=== PATIENT | female | born 1975 | race African-American/Black ===

== ENCOUNTER 2022-01-10 10:50 | Outpatient (CLI) | payer BC ==
[2022-01-10 11:48] LABS: #Basophils 0.1 thou/uL (0.0-0.2); #Eosinphils 0.7 thou/uL (0.0-0.7); #Lymphocytes 2.8 thou/uL (1.20-3.40); #Monocytes 0.8 thou/uL (0.11-0.59); #Neutrophils 5.8 thou/uL (1.40-6.50); %Basophils 1.2 % (0.0-1.0); %Eosinophils 6.8 % (0.0-10.0); %Lymphocytes 27.8 % (21.0-51.0); %Monocytes 7.5 % (0.0-10.0); %Neutrophils 56.7 % (42.0-75.0); Hemoglobin 10.8 g/dL (12.0-16.0); MDiff Complete? YES; Mean Corpuscular HGB CONC 29.4 g/dL (32.0-36.0); Mean Corpuscular Hemoglobin 22.9 pg (27.0-31.0); Mean Corpuscular Volume 77.9 fL (78.0-98.0); Mean Platelet Volume 6.4 fL (7.4-10.4); Platelet Count 358 thou/uL (130-400); RBC Distribution Width 17.8 % (11.5-14.5); Red Blood Cell (RBC) Count 4.71 mill/uL (4.20-5.40); White Blood Cell (WBC) Count 10.2 thou/uL (4.8-10.8)
[2022-01-10 11:49] LABS: Anisocytosis SLIGHT = 6-15 cells (100X) (0-5/hpf); Hypochromia SLIGHT = 6-15 cells (100X) (0-5/hpf); Platelet Morphology Comment Appears Adequate
== END 2022-01-10 10:51 | disposition home or self-care (01) ==
LOC: MADLAB 10:50 → MADRAD 10:51
PROVIDERS: ATTEND Family Medicine
DX: R05.8 Other specified cough (principal); M79.89 Other specified soft tissue disorders; R06.01 Orthopnea
CPT/HCPCS: 36415; 71046; 83880; 85025

== ENCOUNTER 2023-01-10 10:41 | Outpatient (CLI) | payer BC | END 2023-01-10 10:42 | disposition home or self-care (01) | LOC: MADRAD 10:41 | PROVIDERS: ATTEND Nurse Practitioner Family | DX: M25.572 Pain in left ankle and joints of left foot (principal); M79.672 Pain in left foot ==